=== PATIENT | female | born 1950 | race Hispanic/Latino ===

== ENCOUNTER → 2017-11-24 | Outpatient (CLI) | payer OTHER, MEDICARE ==
[~2017-11-24] MED LIST: ACET1TAB25 PO; ALBU8.5H8 IH; AMLO5TAB7 PO; AUD IH; BACL10TA PO; BACL20TA PO; BUDE0.255 IH; ENAL10TA PO; ESOM40CA PO; FAMO40TA7 PO; FLUO20CA30 PO; FURO20TA4 PO; GABA-318 PO; LOPE2CAP PO; MECL-111 PO; MONT10TA24 PO; OMEP20TA25 PO; PROM25TA7 PO; ROSU10TA PO; SUCR1TAB2 PO; TRAM-355 PO
[2017-11-24 09:32] LABS: ALANINE AMINOTRANSFERASE 20 U/L (12-78); ASPARTATE AMINOTRANSFERASE 18 U/L (10-37)
== END | disposition home or self-care (01) ==
LOC: RAH 08:21
PROVIDERS: ATTEND Podiatrist
DX: B35.1 Tinea unguium (principal)
CPT/HCPCS: 36415; 84450; 84460

== ENCOUNTER 2019-10-30 13:28 | Inpatient (IN) | payer MEDICARE ==
[~2019-10-30] VITALS: Ht 175.3 cm; Wt 77.9 kg
[~2019-10-30 13:28] MED LIST changes: -AMLO5TAB7 PO; +AMLO5TAB9 PO; -ENAL10TA PO; +ENAL10TA18 PO; -GABA-318 PO; +GABA600T10 PO; -MECL-111 PO; +MECL-160 PO; -MONT10TA24 PO; +MONT10TA26 PO; -ROSU10TA PO; +ROSU10TA22 PO
[2019-10-30] MEDS ORDERED: ZOSYN 3.375GM+NS 50ML 50 ML IV ONE (13:48)
[2019-10-30] MEDS ORDERED: ACETAMINOPHEN 650 MG SUPPOSITORY RC ONE (13:49)
[2019-10-30 13:58] LABS: ABG BASE EXCESS -8.7 mmol/L (-2.0-3.0); ABG HCO3 16.2 mmol/L (21.0-28.0); ABG OXYGEN SATURATION 99.3 % (95.0-99.0); ABG PCO2 32 mmHg (32-45)
[2019-10-30 14:16] LABS: APPEARANCE,URINE Clear (CLEAR); BASOPHILS % (AUTO) 0.3 % (0.0-5.0); BILIRUBIN,URINE Negative (NEGATIVE); COLOR,URINE Dark Yellow (YELLOW); EOSINOPHILS % (AUTO) 0.1 % (0.0-8.0); GLUCOSE, URINE (UA) Negative (NEGATIVE); HEMATOCRIT 32.8 % (36-48); KETONES,URINE Negative (NEGATIVE); LEUKOCYTE ESTERASE ,URINE Negative (NEGATIVE); LYMPHOCYTES % (AUTO) 17.4 % (21.0-51.0); MEAN CORPUSCULAR HEMOGLOBIN 29.5 pg (27.0-33.0); MEAN CORPUSCULAR HGB CONC 33.2 g/dL (32.0-36.0); MEAN CORPUSCULAR VOLUME 88.6 fL (79-99); MONOCYTES % (AUTO) 6.6 % (3.0-13.0); NEUTROPHILS % (AUTO) 74.2 % (40.0-77.0); NITRATE,URINE Negative (NEGATIVE); OCCULT BLOOD,URINE Large (NEGATIVE); PLATELET COUNT (AUTO) 183 K/uL (130-400); PROTEIN,URINE POS 2+ mg/dL (NEGATIVE); WHITE BLOOD COUNT (AUTO) 14.5 K/uL (4.8-10.8)
[2019-10-30 14:29] LABS: AMORPHOUS SEDIMENT,UR Few /LPF (None Seen); BACTERIA,URINE Rare /HPF (None Seen); MUCUS,URINE Many LPF (None Seen); SQUAMOUS EPITHELIAL CELL,UR Few /HPF (0-2); WBC,URINE 0-1 /HPF (0-1)
[2019-10-30 14:31] LABS: POTASSIUM 3.8 mmol/L (3.5-5.1)
[2019-10-30 14:46] LABS: INR 1.24 (0.85-1.15); PARTIAL THROMBOPLASTIN TIME 22.2 SEC (26.3-35.5); PROTHROMBIN TIME 13.3 SEC (9.6-11.6)
[2019-10-30 14:57] LABS: ALBUMIN 2.7 g/dL (3.5-5.0); BILIRUBIN,TOTAL 1.1 mg/dL (0.2-1.0); TOTAL PROTEIN, SERUM 6.2 g/dL (6.0-8.3)
--- NOTE | 2019-10-30 15:01 | NUR ---
pt intubated via EMS with LMA. Dr. Chase reintubated with 7.5 ET tube. Addendum: 10/30/19 at 1503 by DAMI CASEY RT Amended: Links added.
[2019-10-30 15:06] LABS: TROPONIN I 0.97 ng/mL (0.00-0.06)
[2019-10-30] MEDS ORDERED: PROPOFOL 1000 MG/100 ML 100 ML IV ONE ×2 (15:36→20:56)
[2019-10-30] MEDS ORDERED: VANCOMYCIN 1GM+NS 250ML 250 ML IV ONE (15:52)
[2019-10-30] MEDS ORDERED: NOREPINEPHRINE 4MG/NS 250ML 250 ML IV ONE (16:27)
[2019-10-30] MEDS ORDERED: MIDAZOLAM HCL 5 MG/ML 2ML VIAL IV ONE (16:57)
[2019-10-30] MEDS ORDERED: VANCOMYCIN PROTOCOL PER PHARMACY IV SCH (17:30)
[2019-10-30] MEDS: VANCOMYCIN 1GM+NS 250ML 250 ML IV SCH (18:00)
[2019-10-30] MEDS ORDERED: SODIUM BICARB 50MEQ 50ML VIAL ONE (18:17)
[2019-10-30] MEDS ORDERED: LACTATED RINGERS 1000ML 1,000 ML IV ONE (18:18)
[2019-10-30] MEDS ORDERED: NOREPINEPHRINE 4MG/NS 250ML IV SCH (18:45)
[2019-10-30] MEDS ORDERED: FENTANYL 2500MCG+NS 250ML 250 ML IV SCH (18:45)
[2019-10-30] MEDS ORDERED: FENTANYL 2500MCG+NS 250ML 250 ML IV ONE (21:16)
[2019-10-30 22:50] VITALS: BP 159/86
[2019-10-30 23:00] VITALS: BP 168/86
--- NOTE | 2019-10-30 23:00 | NUR ---
ADMISSION PT RECEIVED TO ROOM DAY PT 16, INTUBATED AND SEDATED. ETT 7.5, 23 CM AT THE LIP WITH SETTINGS OF AC/540%/420/PEEP OF 5. LEFT ARM IV X2 WITH IV FLUIDS/SEDATION/LEVOPHED INFUSING WITHOUT DIFFICULTY. RHYTHM: RBBB. 18FR OGT IN PLACE AND CLAMPED. LARGE BM NOTED, BATH GIVEN. 18FR ARCHER TO BSD. ASSESSMENT COMPLETED, SEE FLOW SHEET. ADMISSION DATA BASE AND PT HISTORY OBTAINED FROM PREVIOUS RECORDS. MED RECONCILIATION OBTAINED FROM MEDS WITH PT. SEE VITAL SIGNS,
[2019-10-30 23:15] VITALS: BP 145/81
[2019-10-30 23:30] VITALS: BP 162/85
[2019-10-30 23:45] VITALS: BP 164/90
[2019-10-30] MEDS: LACTATED RINGERS 1000ML 1,000 ML IV SCH (23:48)
[2019-10-30] MEDS: SODIUM CHLORIDE 0.9% 1000ML 1,000 ML IV SCH (23:49)
[2019-10-31] VITALS (25 sets, daily range): BP systolic 82–172; BP diastolic 46–88
[2019-10-31] MEDS: SODIUM CHLORIDE 0.9% 1000ML 1,000 ML IV SCH (00:47)
[2019-10-31] MEDS: LACTATED RINGERS 1000ML 1,000 ML IV SCH ×3 (00:57→19:49)
[2019-10-31 03:33] LABS: HEMATOCRIT 34.4 % (36-48); MEAN CORPUSCULAR HEMOGLOBIN 29.1 pg (27.0-33.0); MEAN CORPUSCULAR HGB CONC 34.3 g/dL (32.0-36.0); MEAN CORPUSCULAR VOLUME 84.7 fL (79-99); RED BLOOD CELL COUNT(AUTO) 4.06 MIL/uL (4.00-5.50); RED CELL DISTRIBUTION WIDTH 13.1 % (11.0-15.5); WHITE BLOOD COUNT (AUTO) 9.3 K/uL (4.8-10.8)
[2019-10-31 03:52] LABS: ALBUMIN 2.5 g/dL (3.5-5.0); BILIRUBIN,TOTAL 1.5 mg/dL (0.2-1.0); CREATININE 1.1 mg/dL (0.5-1.5); MAGNESIUM 1.5 mg/dL (1.80-2.40); PHOSPHORUS 3.1 mg/dL (2.5-4.9); POTASSIUM 3.2 mmol/L (3.5-5.1); TOTAL PROTEIN, SERUM 6.3 g/dL (6.0-8.3)
[2019-10-31] MEDS ORDERED: FLUO40CA7 PO (04:07)
[2019-10-31] MEDS ORDERED: ENALAPRIL PO (04:07)
[2019-10-31] MEDS ORDERED: OMEP20CA12 PO (04:07)
[2019-10-31] MEDS ORDERED: AMLODIPINE PO (04:07)
[2019-10-31] MEDS ORDERED: IBUP-2070 PO (04:07)
[2019-10-31] MEDS ORDERED: ATOR10TA69 PO (04:07)
[2019-10-31 04:30] LABS: ABG BASE EXCESS -0.3 mmol/L (-2.0-3.0); ABG HCO3 22.7 mmol/L (21.0-28.0); ABG OXYGEN SATURATION 98.5 % (95.0-99.0); ABG PCO2 33 mmHg (32-45)
[2019-10-31] MEDS ORDERED: ONDANSETRON HCL 4 MG/2 ML VIAL IVP PRN (04:30)
--- NOTE | 2019-10-31 04:40 | NUR ---
LAUREN GIRLS TENNIS COACH CALL PLACED TO ANSWERING SERVICE AT 0440 RETURN CALL PENDING.
[2019-10-31] MEDS: ZOSYN 3.375GM+NS 50ML 50 ML IV SCH ×2 (05:29→16:38)
--- NOTE | 2019-10-31 06:00 | NUR ---
LAUREN MARTIN CALL PLACED TO ANSWERING SERVICE AT 0600 RETURN CALL PENDING.
--- NOTE | 2019-10-31 06:15 | NUR ---
LAUREN MARTIN STOVE MECHANIC MADE AWARE TROPONIN LEVEL 3.25, LACTIC ACID LEVEL 2.2, KCL LEVEL 3.2, MAGNESIUM LEVEL 1.5. SEE ORDERS
[2019-10-31] MEDS ORDERED: LIDOCAINE HCL-MPF 1% 2ML VIAL IV PRN (06:30)
[2019-10-31] MEDS ORDERED: POTASSIUM CHLORIDE 20 MEQ ERTAB PO PRN (06:30)
[2019-10-31] MEDS: FAMOTIDINE/PF 20 MG/2 ML VIAL IV SCH (08:32)
[2019-10-31] MEDS: POTASSIUM CHLORIDE 20MEQ/100ML 100 ML IV PRN ×2 (08:35→10:38)
[2019-10-31] MEDS: MAGNESIUM 2GM PREMIX 50ML 50 ML IV PRN (08:35)
[2019-10-31] MEDS ORDERED: ENOXAPARIN SODIUM 40 MG/0.4 ML SYRINGE SQ SCH (09:00)
[2019-10-31 12:45] LABS: POTASSIUM 3.2 mmol/L (3.5-5.1)
--- NOTE | 2019-10-31 16:20 | NUR ---
ABBIE informed by Matthew/ANN she has contacted pt's caregiver for information on family or next of kin and was informed that pt. was never , has no children and a brother for whom she has no contact information. ABBIE contacted Noni Guadarrama [phone] who also informed this worker that pt. had no spouse or children; a brother whom pt. was estranged from. ABBIE contacted [facility] services and was informed pt. did not include a relative/next of kin. ABBIE contacted
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
--- NOTE | 2019-10-31 17:00 | NUR ---
Telephone call from Adonay/Director of [facility] who stated that pt. did not have Advance Directives in place. Adonay provided a contact tel#for Brother/Eliot Avitia [phone] and to VIVIANA [phone], stating if unable to contact Brother, VIVIANA may have additional information. ABBIE will f/u.
[2019-10-31] MEDS: VANCOMYCIN 1GM+NS 250ML 250 ML IV SCH (17:05)
[2019-10-31] MEDS: PANTOPRAZOLE 40 MG/VIAL IVP SCH (19:49)
[2019-10-31] MEDS: MIDAZOLAM 100MG-0.9% NS 100ML 100 ML IV SCH (19:50)
[2019-10-31] MEDS ORDERED: ENOXAPARIN SODIUM 100 MG/1 ML SQ SCH (21:00)
[2019-11-01] VITALS (24 sets, daily range): BP systolic 96–121; BP diastolic 14–67
[2019-11-01] MEDS: LACTATED RINGERS 1000ML 1,000 ML IV SCH ×4 (02:45→14:45)
[2019-11-01 04:20] LABS: BASOPHILS % (AUTO) 0.3 % (0.0-5.0); EOSINOPHILS % (AUTO) 0.1 % (0.0-8.0); HEMATOCRIT 34.3 % (36-48); LYMPHOCYTES % (AUTO) 16.5 % (21.0-51.0); MEAN CORPUSCULAR HEMOGLOBIN 28.7 pg (27.0-33.0); MEAN CORPUSCULAR HGB CONC 32.9 g/dL (32.0-36.0); MEAN CORPUSCULAR VOLUME 87.1 fL (79-99); MONOCYTES % (AUTO) 5.5 % (3.0-13.0); NEUTROPHILS % (AUTO) 77.1 % (40.0-77.0); PLATELET COUNT (AUTO) 41 K/uL (130-400); RED BLOOD CELL COUNT(AUTO) 3.94 MIL/uL (4.00-5.50); RED CELL DISTRIBUTION WIDTH 13.4 % (11.0-15.5); WHITE BLOOD COUNT (AUTO) 15.4 K/uL (4.8-10.8)
[2019-11-01 04:32] LABS: B-TYPE NATRIURETIC PEPTIDE 47 pg/mL (0-100)
[2019-11-01] MEDS: ZOSYN 3.375GM+NS 50ML 50 ML IV SCH ×2 (04:35→16:32)
[2019-11-01 04:40] LABS: ALBUMIN 2.5 g/dL (3.5-5.0); BILIRUBIN,TOTAL 1.4 mg/dL (0.2-1.0); CREATININE 1.1 mg/dL (0.5-1.5); MAGNESIUM 1.9 mg/dL (1.80-2.40); THYROID STIMULATING HORMONE 0.87 uIU/mL (0.36-3.74); TOTAL PROTEIN, SERUM 5.6 g/dL (6.0-8.3)
[2019-11-01] MEDS: POTASSIUM CHLORIDE 20MEQ/100ML 100 ML IV PRN ×2 (04:46→06:16)
[2019-11-01 04:48] LABS: INR 1.14 (0.85-1.15); PARTIAL THROMBOPLASTIN TIME 25.6 SEC (26.3-35.5); PROTHROMBIN TIME 12.2 SEC (9.6-11.6)
[2019-11-01 05:07] LABS: HEMOGLOBIN A1C 6.5 % (4.0-6.0)
[2019-11-01 07:37] LABS: ABG BASE EXCESS -2.2 mmol/L (-2.0-3.0); ABG HCO3 23.1 mmol/L (21.0-28.0); ABG OXYGEN SATURATION 92.1 % (95.0-99.0); ABG PCO2 41 mmHg (32-45)
--- NOTE | 2019-11-01 08:30 | NUR ---
ABBIE attempted several calls to [phone]/last known phone number for pt's brother per [facility], however, no answer. ABBIE telephoned VAIL at [phone] in attempts to speak w/pt's protective services case worker; message left with gridcap machine operator for CM to contact this worker.
[2019-11-01] MEDS: LEVOFLOXACIN 750 MG/D5W 150 ML 150 ML IV SCH (09:06)
[2019-11-01] MEDS: FAMOTIDINE/PF 20 MG/2 ML VIAL IV SCH (09:06)
[2019-11-01] MEDS: PANTOPRAZOLE 40 MG/VIAL IVP SCH ×2 (09:06→20:42)
--- NOTE | 2019-11-01 09:15 | NUR ---
SW received t/c from Nova Guadarrama/[employer]/VIVIANA [phone], reports does not have next of kin listed on record.
--- NOTE | 2019-11-01 11:10 | NUR ---
SW attempted call again, to last known contact/pt's brother @ [phone]; no answer.
--- NOTE | 2019-11-01 14:15 | NUR ---
SW telephoned Brother again, was able to speak with him who reports that it has been almost five years since he spoke or has known of her. Brother provided w/hospital contact information as requested so that he may contact primary nurse. SW attempted call to primary nurse to inform of above, no answer. ANN Esqueda, made aware.
--- NOTE | 2019-11-01 15:11 | NUR ---
Brother of patient requesting information about patient, gave number & name & added to facesheet, family member began asking for physical address of patient, stating he doesn't know where she lives; informed brother that information was confidential and to ask primary caregiver or patient once able to verbalize consent. Family member became angry and stated "well don't call me about the patient". Case management notified & recommended to make a note about occurrence.
[2019-11-01] MEDS: MIDAZOLAM 100MG-0.9% NS 100ML 100 ML IV SCH (16:31)
[2019-11-01] MEDS: VANCOMYCIN 1GM+NS 250ML 250 ML IV SCH (17:17)
[2019-11-01] MEDS ORDERED: SODIUM CHLORIDE 0.9% 1000ML 1,000 ML IV SCH (21:00)
[2019-11-02] VITALS (24 sets, daily range): BP systolic 95–135; BP diastolic 51–69
[2019-11-02] MEDS: ZOSYN 3.375GM+NS 50ML 50 ML IV SCH ×2 (04:50→17:00)
[2019-11-02 07:07] LABS: BASOPHILS % (AUTO) 0.3 % (0.0-5.0); EOSINOPHILS % (AUTO) 0.6 % (0.0-8.0); HEMATOCRIT 31.3 % (36-48); LYMPHOCYTES % (AUTO) 12.1 % (21.0-51.0); MEAN CORPUSCULAR HEMOGLOBIN 29.7 pg (27.0-33.0); MEAN CORPUSCULAR HGB CONC 33.2 g/dL (32.0-36.0); MEAN CORPUSCULAR VOLUME 89.4 fL (79-99); MONOCYTES % (AUTO) 5.6 % (3.0-13.0); NEUTROPHILS % (AUTO) 80.8 % (40.0-77.0); PLATELET COUNT (AUTO) 56 K/uL (130-400); RED CELL DISTRIBUTION WIDTH 13.8 % (11.0-15.5); WHITE BLOOD COUNT (AUTO) 13.3 K/uL (4.8-10.8)
[2019-11-02 07:26] LABS: BILIRUBIN,TOTAL 1.4 mg/dL (0.2-1.0); CREATININE 0.9 mg/dL (0.5-1.5); POTASSIUM 3.5 mmol/L (3.5-5.1); TOTAL PROTEIN, SERUM 5.2 g/dL (6.0-8.3)
[2019-11-02 07:29] LABS: PROTHROMBIN TIME 10.8 SEC (9.6-11.6)
[2019-11-02] MEDS: PANTOPRAZOLE 40 MG/VIAL IVP SCH ×2 (08:51→21:55)
[2019-11-02] MEDS: FAMOTIDINE/PF 20 MG/2 ML VIAL IV SCH (08:51)
[2019-11-02] MEDS: LEVOFLOXACIN 750 MG/D5W 150 ML 150 ML IV SCH (08:51)
[2019-11-02] MEDS: LACTATED RINGERS 1000ML 1,000 ML IV SCH ×2 (10:45→18:45)
--- NOTE | 2019-11-02 10:55 | NUR ---
Telephone call from pt's brother asking for update on pt's condition; reinforced to brother that he may contact pt's nurse; brother voiced an understanding and stated that he would follow up with nurse.
--- NOTE | 2019-11-02 12:00 | NUR ---
FAMILY CALL JORJE ANDERSON, BROTHER AND NEXT OF KIN , WAS CONTACTED. HE STATES TO ASSUMES ALL RESPONSIBILITY FOR PT WHILE INTUBATED AND UNABLE TO MAKE DECISIONS. GAVE CONSENT FOR PICC LINE PLACEMENT.
--- NOTE | 2019-11-02 13:50 | NUR ---
6 FR 3 LUMEN PICC INSERTED TO RIGHT BASILIC VEIN, USING ASEPTIC TECHNIQUE WITH ONE SUCCESSFUL ATTEMPT. CATHETER TRIMMED TO 38 CM. (+) VPS BULLSEYE INDICATES PICC TIP IN LOWER 1/3 OF SVC OR AT CAVOATRIAL JUNCTION WITH 37 CM INTERNAL CATHETER AND 1 CM EXPOSED. STERILE BIOPATCH AND DRESSING APPLIED. PICC OK TO USE PER PROTOCOL. ALL 3 LUMENS HAVE GOOD BLOOD RETURN AND FLUSHED EASILY AND CLAMPED. ARM CIRCUMFERENCE 31CM.
[2019-11-02] MEDS ORDERED: PHARMACY COMMUNICATION MISC SCH (15:00)
[2019-11-02] MEDS ORDERED: FUROSEMIDE 10 MG/ML 4ML VIAL IV SCH (15:00)
[2019-11-02] MEDS ORDERED: ALBUMIN (HUMAN) 25% 100 ML IV PRN (15:00)
--- NOTE | 2019-11-02 15:29 | NUR ---
RD NOTIFICATION - TUBE FEEDING Recommend initiate Vital AF 1.2 @15mls x 10 hrs. Goal rate 50mls/hr Recommend H2O Flushes 140 Q 4hrs Recommendations faxed to Day Pt ([id number]), RN notified. NUTRITION NOTE: Pt admitted with Sepsis, Bacterlyosis, Rhabdomyolysis. Intubation. OGT placement. Hx CP, functional quadriplegia. RD to continue to monitor. Addendum: 11/02/19 at [address] Amended: Links added.
[2019-11-02] MEDS ORDERED: ALBUMIN (HUMAN) 25% 100 ML IV SCH (16:00)
--- NOTE | 2019-11-02 16:15 | NUR ---
[facility] consult Patient assessed as ordered. No open ulcer identified. 2 areas of DTI noted on sacral area. Zinc and allevyn already being applied to area. No further [facility] recommendations needed at this time. Report given to patient's nurse, Karmen IBANEZ. Addendum: 11/03/19 at 0813 by JUAN FELTON RN/ANKITA Amended: Links added.
[2019-11-02] MEDS: VANCOMYCIN 1GM+NS 250ML 250 ML IV SCH (18:00)
[2019-11-03] VITALS (24 sets, daily range): BP systolic 124–165; BP diastolic 63–85
[2019-11-03] MEDS: LACTATED RINGERS 1000ML 1,000 ML IV SCH ×3 (03:02→22:40)
[2019-11-03 04:03] LABS: ABG BASE EXCESS 1.7 mmol/L (-2.0-3.0); ABG HCO3 26.4 mmol/L (21.0-28.0); ABG OXYGEN SATURATION 95.6 % (95.0-99.0); ABG PCO2 42 mmHg (32-45)
[2019-11-03] MEDS: ZOSYN 3.375GM+NS 50ML 50 ML IV SCH ×2 (05:09→17:59)
[2019-11-03 05:49] LABS: HEMATOCRIT 29.3 % (36-48); MEAN CORPUSCULAR HEMOGLOBIN 29.7 pg (27.0-33.0); MEAN CORPUSCULAR HGB CONC 33.4 g/dL (32.0-36.0); MEAN CORPUSCULAR VOLUME 88.8 fL (79-99); RED BLOOD CELL COUNT(AUTO) 3.3 MIL/uL (4.00-5.50); RED CELL DISTRIBUTION WIDTH 13.5 % (11.0-15.5); WHITE BLOOD COUNT (AUTO) 11.1 K/uL (4.8-10.8)
[2019-11-03 06:12] LABS: MAGNESIUM 1.6 mg/dL (1.80-2.40); PHOSPHORUS 3.2 mg/dL (2.5-4.9)
[2019-11-03 08:03] LABS: CREATININE 0.7 mg/dL (0.5-1.5); POTASSIUM 3.3 mmol/L (3.5-5.1)
[2019-11-03] MEDS: FAMOTIDINE/PF 20 MG/2 ML VIAL IV SCH (08:40)
[2019-11-03] MEDS: LEVOFLOXACIN 750 MG/D5W 150 ML 150 ML IV SCH (08:40)
[2019-11-03] MEDS: PANTOPRAZOLE 40 MG/VIAL IVP SCH ×2 (08:40→21:45)
[2019-11-03] MEDS: POTASSIUM CHLORIDE 20MEQ/100ML 100 ML IV PRN ×2 (08:41→12:28)
--- NOTE | 2019-11-03 09:50 | NUR ---
RD UPDATE Repeat Tube feeding eval. consult received. Recommendations Re-faxed. Read order over phone with RN. RD to continue to monitor.
[2019-11-03] MEDS: VANCOMYCIN 1GM+NS 250ML 250 ML IV SCH (17:59)
[2019-11-04] VITALS (22 sets, daily range): BP systolic 107–174; BP diastolic 56–90
[2019-11-04] MEDS: ZOSYN 3.375GM+NS 50ML 50 ML IV SCH ×2 (05:29→16:00)
[2019-11-04] MEDS: LACTATED RINGERS 1000ML 1,000 ML IV SCH ×3 (05:29→18:45)
[2019-11-04] MEDS: FAMOTIDINE/PF 20 MG/2 ML VIAL IV SCH (08:05)
[2019-11-04] MEDS: LEVOFLOXACIN 750 MG/D5W 150 ML 150 ML IV SCH (08:05)
[2019-11-04] MEDS: PANTOPRAZOLE 40 MG/VIAL IVP SCH ×2 (08:05→19:37)
[2019-11-04 08:26] LABS: HEMATOCRIT 26.7 % (36-48); MEAN CORPUSCULAR HEMOGLOBIN 29.1 pg (27.0-33.0); MEAN CORPUSCULAR VOLUME 88.4 fL (79-99); RED BLOOD CELL COUNT(AUTO) 3.02 MIL/uL (4.00-5.50); RED CELL DISTRIBUTION WIDTH 13.2 % (11.0-15.5); WHITE BLOOD COUNT (AUTO) 8.5 K/uL (4.8-10.8)
[2019-11-04 08:46] LABS: ALBUMIN 1.9 g/dL (3.5-5.0); BILIRUBIN,TOTAL 2.6 mg/dL (0.2-1.0); CREATININE 0.7 mg/dL (0.5-1.5); POTASSIUM 3.2 mmol/L (3.5-5.1); TOTAL PROTEIN, SERUM 5.2 g/dL (6.0-8.3)
[2019-11-04] MEDS: POTASSIUM CHLORIDE 20MEQ/100ML 100 ML IV PRN ×3 (09:44→15:36)
[2019-11-04] MEDS ORDERED: COMPOUND IV REFRIGERATED 1 EACH IVSOLN MISC PRN (18:30)
[2019-11-04] MEDS: VANCOMYCIN 1.25 GM in SODIUM CHLORIDE 0.9% 250 ML IV SCH (19:38)
[2019-11-05] VITALS (24 sets, daily range): BP systolic 98–169; BP diastolic 47–106
[2019-11-05] MEDS: LACTATED RINGERS 1000ML 1,000 ML IV SCH ×3 (02:45→16:24)
[2019-11-05] MEDS: ZOSYN 3.375GM+NS 50ML 50 ML IV SCH ×2 (05:44→16:24)
[2019-11-05 05:54] LABS: BASOPHILS % (AUTO) 0.5 % (0.0-5.0); HEMATOCRIT 27.5 % (36-48); LYMPHOCYTES % (AUTO) 13.4 % (21.0-51.0); MEAN CORPUSCULAR HEMOGLOBIN 29.2 pg (27.0-33.0); MEAN CORPUSCULAR HGB CONC 33.8 g/dL (32.0-36.0); MEAN CORPUSCULAR VOLUME 86.5 fL (79-99); MONOCYTES % (AUTO) 10.4 % (3.0-13.0); PLATELET COUNT (AUTO) 201 K/uL (130-400); RED BLOOD CELL COUNT(AUTO) 3.18 MIL/uL (4.00-5.50); RED CELL DISTRIBUTION WIDTH 12.8 % (11.0-15.5); WHITE BLOOD COUNT (AUTO) 9.2 K/uL (4.8-10.8)
[2019-11-05 06:06] LABS: ALBUMIN 2.1 g/dL (3.5-5.0); BILIRUBIN,TOTAL 3.2 mg/dL (0.2-1.0); CREATININE 0.6 mg/dL (0.5-1.5); MAGNESIUM 1.6 mg/dL (1.80-2.40); PHOSPHORUS 2.7 mg/dL (2.5-4.9); POTASSIUM 3.4 mmol/L (3.5-5.1); TOTAL PROTEIN, SERUM 5.5 g/dL (6.0-8.3)
[2019-11-05] MEDS ORDERED: PROPOFOL 1000 MG/100 ML 100 ML IV ONE (07:53)
[2019-11-05] MEDS ORDERED: PROPOFOL 1000 MG/100 ML 100 ML IV SCH (08:00)
[2019-11-05] MEDS: VANCOMYCIN 1.25 GM in SODIUM CHLORIDE 0.9% 250 ML IV SCH ×2 (08:30→20:00)
[2019-11-05] MEDS: LEVOFLOXACIN 750 MG/D5W 150 ML 150 ML IV SCH (08:30)
[2019-11-05] MEDS: FAMOTIDINE/PF 20 MG/2 ML VIAL IV SCH (08:30)
[2019-11-05] MEDS: PANTOPRAZOLE 40 MG/VIAL IVP SCH ×2 (08:30→21:37)
[2019-11-05] MEDS: POTASSIUM CHLORIDE 20MEQ/100ML 100 ML IV PRN (11:21)
[2019-11-05 14:03] LABS: ABG BASE EXCESS -0.4 mmol/L (-2.0-3.0); ABG HCO3 21.7 mmol/L (21.0-28.0); ABG OXYGEN SATURATION 97.8 % (95.0-99.0); ABG PCO2 29 mmHg (32-45)
--- NOTE | 2019-11-05 14:22 | NUR ---
1410 extubated after normal abg, tolerated well; cough/congestion/raspy cough/voice-onto ventimask 40% o2, 12 liters, 1415 suctioned scant amount back of throat, sat 99% on ventimask 40%, 10 liters/o2, awake/alert.
[2019-11-05] MEDS: MAGNESIUM 2GM PREMIX 50ML 50 ML IV PRN (21:20)
[2019-11-06] VITALS (18 sets, daily range): BP systolic 136–161; BP diastolic 69–94
[2019-11-06] MEDS: ZOSYN 3.375GM+NS 50ML 50 ML IV SCH (04:28)
[2019-11-06 05:03] LABS: BASOPHILS % (AUTO) 0.4 % (0.0-5.0); EOSINOPHILS % (AUTO) 0.8 % (0.0-8.0); HEMATOCRIT 31.1 % (36-48); LYMPHOCYTES % (AUTO) 11.2 % (21.0-51.0); MEAN CORPUSCULAR HEMOGLOBIN 28.8 pg (27.0-33.0); MEAN CORPUSCULAR HGB CONC 33.4 g/dL (32.0-36.0); MEAN CORPUSCULAR VOLUME 86.1 fL (79-99); MONOCYTES % (AUTO) 13.6 % (3.0-13.0); PLATELET COUNT (AUTO) 298 K/uL (130-400); RED BLOOD CELL COUNT(AUTO) 3.61 MIL/uL (4.00-5.50); RED CELL DISTRIBUTION WIDTH 12.6 % (11.0-15.5); WHITE BLOOD COUNT (AUTO) 10.1 K/uL (4.8-10.8)
[2019-11-06 05:19] LABS: ALBUMIN 2.5 g/dL (3.5-5.0); BILIRUBIN,TOTAL 4.5 mg/dL (0.2-1.0); CREATININE 0.6 mg/dL (0.5-1.5); MAGNESIUM 1.9 mg/dL (1.80-2.40); POTASSIUM 3.1 mmol/L (3.5-5.1); TOTAL PROTEIN, SERUM 6.4 g/dL (6.0-8.3)
[2019-11-06] MEDS: LACTATED RINGERS 1000ML 1,000 ML IV SCH ×2 (06:32→09:13)
--- NOTE | 2019-11-06 06:33 | NUR ---
PATIENT UPDATE Pt hardly slept overnight, mumbling, slurry random speech. Hacking cough most of the time, poor coughing effort. Suctioned almost every 2 hrs, very small amt of watery phlegm, patient sounding like she's aspirating the whole time. Right arm which she moves a lot more than the left with mitten on, cms check adequate. PIV's x 2, infiltrated at the beginning of the shift, replaced with 2 new piv's on the right side. Left arm very swollen, elevated over 1 pillow.Mgso4 noted to be on the low side the last 3 days , 2 gms mgso4 ivpb hung for mg of 1.5. PIV fluid LR ordered for 125 cc/hr, ran at 75 cc, pt's breath sounds very diminished early this am. Humidified O2 at 3l per nasal cannula, O2 sat adequate. Meticulous oral care done, vital signs stable, urine output adequate. Unable to attempt ngt insertion as planned, pt very anxious and restless, intermittent hacking cough in between. May need to be reassesed for the need for halfway gavage feeding considering her bedbound status.
[2019-11-06] MEDS: FAMOTIDINE/PF 20 MG/2 ML VIAL IV SCH (07:35)
[2019-11-06] MEDS: LEVOFLOXACIN 750 MG/D5W 150 ML 150 ML IV SCH (07:36)
[2019-11-06] MEDS: PANTOPRAZOLE 40 MG/VIAL IVP SCH ×2 (07:36→21:12)
[2019-11-06] MEDS: POTASSIUM CHLORIDE 20MEQ/100ML 100 ML IV PRN ×2 (07:36→09:49)
--- NOTE | 2019-11-06 09:10 | NUR ---
0850 Attempted x2 to insert NG tube, unable to follow commands, speaking unknown language (Japanese/Ukrainian), unable to verify if tube is going into lungs, discontinued attempt. Unable to drink water.
[2019-11-06] MEDS: VANCOMYCIN 1.25 GM in SODIUM CHLORIDE 0.9% 250 ML IV SCH ×2 (09:13→20:33)
--- NOTE | 2019-11-06 14:32 | NUR ---
[address] Garcia who confirmed for patient to be placed on surgical schedule for peg placement on 11/08/2019 @ 0700, & to obtain consent. supervisor personnel clerks & case management notified. Brother Eliot @ listed number gave consent for peg tube placement, verified x2 nurse phone consent, signed & placed in chart. 1400-Dr Quintanilla confirmed patient can be placed in stepdown ICU, d/t continued high risk for aspiration, updated on plan of care of peg tube placement. oral care completed on patient, several passes of wiping dried blood off lips & applying surgical lubricant to dry areas. Teeth brushed, tolerated well. 1402-supervisor personnel clerks notified of downgrading patient confirmed by md. Order entered into chart.
--- NOTE | 2019-11-06 15:12 | NUR ---
Report given to Sander for Rm 427.
--- NOTE | 2019-11-06 15:40 | NUR ---
Transferred up to 4th floor with tech & nurse on 2liters/o2, tele monitor on/checked, ambu bag @ side.
[2019-11-06] MEDS ORDERED: ZOSYN 3.375GM+NS 50ML 50 ML IV SCH (21:00)
[2019-11-07] VITALS: BP 122/55
[2019-11-07 00:28] VITALS: BP 151/82
[2019-11-07 04:00] VITALS: BP 135/95
[2019-11-07 05:22] LABS: BASOPHILS % (AUTO) 0.4 % (0.0-5.0); EOSINOPHILS % (AUTO) 1.6 % (0.0-8.0); HEMATOCRIT 30.8 % (36-48); LYMPHOCYTES % (AUTO) 15.2 % (21.0-51.0); MEAN CORPUSCULAR HEMOGLOBIN 28.9 pg (27.0-33.0); MEAN CORPUSCULAR HGB CONC 33.8 g/dL (32.0-36.0); MEAN CORPUSCULAR VOLUME 85.6 fL (79-99); MONOCYTES % (AUTO) 13.9 % (3.0-13.0); NEUTROPHILS % (AUTO) 68.4 % (40.0-77.0); PLATELET COUNT (AUTO) 385 K/uL (130-400); RED CELL DISTRIBUTION WIDTH 12.8 % (11.0-15.5); WHITE BLOOD COUNT (AUTO) 9.3 K/uL (4.8-10.8)
[2019-11-07] MEDS: LACTATED RINGERS 1000ML 1,000 ML IV SCH ×2 (05:23→13:25)
[2019-11-07 05:41] LABS: ALBUMIN 2.4 g/dL (3.5-5.0); BILIRUBIN,TOTAL 4.1 mg/dL (0.2-1.0); CREATININE 0.6 mg/dL (0.5-1.5); MAGNESIUM 1.7 mg/dL (1.80-2.40); PHOSPHORUS 3.4 mg/dL (2.5-4.9); POTASSIUM 3.8 mmol/L (3.5-5.1); TOTAL PROTEIN, SERUM 6.4 g/dL (6.0-8.3)
[2019-11-07] MEDS: VANCOMYCIN 1.25 GM in SODIUM CHLORIDE 0.9% 250 ML IV SCH ×2 (08:00→20:25)
--- NOTE | 2019-11-07 08:00 | NUR ---
CARE, ORAL AND FACE, CARE DONE,, MATTRESS ON .
[2019-11-07] MEDS: FAMOTIDINE/PF 20 MG/2 ML VIAL IV SCH (08:49)
[2019-11-07] MEDS: ENOXAPARIN SODIUM 40 MG/0.4 ML SYRINGE SQ SCH (08:52)
[2019-11-07] MEDS: PANTOPRAZOLE 40 MG/VIAL IVP SCH ×2 (09:00→21:14)
--- NOTE | 2019-11-07 09:20 | NUR ---
vanco trough done , and fax to [facility]. results of 9.5
--- NOTE | 2019-11-07 10:02 | NUR ---
CALL [facility]. FOR VANCO IVPB DOSE TO START, VANCO TROUGH SEND OUT TO [facility]. FOR DOSING, MANGEMENT .
[2019-11-07] MEDS: LEVOFLOXACIN 750 MG/D5W 150 ML 150 ML IV SCH (11:08)
--- NOTE | 2019-11-07 12:02 | NUR ---
CHART REVIEWED. DISPO TO HOME? HOPING THAT PATIENT WILL BE ABLE TO BACK TO HOME SETTING WITH MORE SUPPORT FOR HER PROVIDER VIA HH/PT TO [facility] TRANSFER ABILITY. EXPECTING 2+ DAY OF TX PRIOR TO DC. EXPECTED EMS TRANSPORT AT TIME OF DC
[2019-11-07 12:26] VITALS: BP 149/78
[2019-11-07] MEDS: ZOSYN 3.375GM+NS 50ML 50 ML IV SCH ×2 (12:43→21:14)
--- NOTE | 2019-11-07 12:45 | NUR ---
DID NOT GIVE THE 0800 DOSE OF VANCO 1.5 GMS IVBP . DID NOT GET BAG UNTIL THIS TIME,, SCHLD DOSE AT 2000 TO KEEP IN SCHLD . DOSE. VANCO TROUGH TO BE DONE . BEFORE 4TH DOSE. PER [facility] PROTOCOL.
--- NOTE | 2019-11-07 16:51 | NUR ---
CARE DONE . ORAL CARE .. TURNED . HOB UP . BROTHER CALLED , UPDATE CARE.
[2019-11-07] MEDS: MAGNESIUM 2GM PREMIX 50ML 50 ML IV PRN (17:03)
[2019-11-07 18:31] VITALS: BP 144/81
[2019-11-07 20:28] VITALS: BP 148/70
[2019-11-08] VITALS (21 sets, daily range): BP systolic 110–168; BP diastolic 64–92
[2019-11-08 05:29] LABS: HEMATOCRIT 31.9 % (36-48); MEAN CORPUSCULAR HEMOGLOBIN 29.2 pg (27.0-33.0); MEAN CORPUSCULAR HGB CONC 33.9 g/dL (32.0-36.0); MEAN CORPUSCULAR VOLUME 86.2 fL (79-99); RED BLOOD CELL COUNT(AUTO) 3.7 MIL/uL (4.00-5.50); RED CELL DISTRIBUTION WIDTH 12.9 % (11.0-15.5); WHITE BLOOD COUNT (AUTO) 8.6 K/uL (4.8-10.8)
[2019-11-08 05:52] LABS: INR 1.06 (0.85-1.15); PROTHROMBIN TIME 11.4 SEC (9.6-11.6)
[2019-11-08 06:20] LABS: ALBUMIN 2.7 g/dL (3.5-5.0); CREATININE 0.6 mg/dL (0.5-1.5); PHOSPHORUS 4.8 mg/dL (2.5-4.9); POTASSIUM 3.3 mmol/L (3.5-5.1); TOTAL PROTEIN, SERUM 6.7 g/dL (6.0-8.3)
[2019-11-08] MEDS: VANCOMYCIN 1.25 GM in SODIUM CHLORIDE 0.9% 250 ML IV SCH ×2 (08:00→19:40)
[2019-11-08] MEDS: ZOSYN 3.375GM+NS 50ML 50 ML IV SCH ×2 (09:00→21:02)
[2019-11-08] MEDS: FAMOTIDINE/PF 20 MG/2 ML VIAL IV SCH (09:00)
[2019-11-08] MEDS: LEVOFLOXACIN 750 MG/D5W 150 ML 150 ML IV SCH (09:00)
[2019-11-08] MEDS: PANTOPRAZOLE 40 MG/VIAL IVP SCH ×2 (09:00→21:02)
[2019-11-08] MEDS: ENOXAPARIN SODIUM 40 MG/0.4 ML SYRINGE SQ SCH (09:00)
[2019-11-08] MEDS ORDERED: SILVER NITRATE APPLICATOR 1 SWAB TP ONE (11:00)
[2019-11-08] MEDS ORDERED: PROPOFOL 10 MG/ML 20ML VIAL IV ONE (11:29)
--- NOTE | 2019-11-08 12:22 | NUR ---
CHART REVIEWED. WILL DISCUSS PLAN OF CARE WITH DR. PRAKASH. FOR DC TO HOME WITH HOME HEALTH?
[2019-11-08] MEDS: LACTATED RINGERS 1000ML 1,000 ML IV SCH ×2 (12:53→16:05)
--- NOTE | 2019-11-08 13:05 | NUR ---
RD FOLLOW UP RD Notification. Recommend initiate continuous tube feedings at 20mls/hr. Goal rate of 50 mls/hr. Recommend H2O Flushes of 175 Q6hrs. Recommendations faxed to Sherif RN received recommendations. Nutrition update: NGT unable to be inserted. Pending PEG placement. Pt with dysphagia, CP, Bedbound. Bolus feeding recommendations included if needed for discharge. ARF, s/p intubation 10/30, S/p Extubation 11/05/19. RD to continue to monitor. Please notify as additional nutrition concerns arise. Thank you.
[2019-11-09] VITALS: BP 162/92
[2019-11-09 04:00] VITALS: BP 157/83
[2019-11-09 05:48] LABS: BASOPHILS % (AUTO) 0.4 % (0.0-5.0); EOSINOPHILS % (AUTO) 0.4 % (0.0-8.0); HEMATOCRIT 35.5 % (36-48); LYMPHOCYTES % (AUTO) 13.1 % (21.0-51.0); MEAN CORPUSCULAR HEMOGLOBIN 29.1 pg (27.0-33.0); MEAN CORPUSCULAR HGB CONC 33.8 g/dL (32.0-36.0); MEAN CORPUSCULAR VOLUME 86.2 fL (79-99); MONOCYTES % (AUTO) 10.1 % (3.0-13.0); NEUTROPHILS % (AUTO) 75.5 % (40.0-77.0); PLATELET COUNT (AUTO) 512 K/uL (130-400); RED BLOOD CELL COUNT(AUTO) 4.12 MIL/uL (4.00-5.50); RED CELL DISTRIBUTION WIDTH 13.2 % (11.0-15.5); WHITE BLOOD COUNT (AUTO) 9.2 K/uL (4.8-10.8)
[2019-11-09 06:07] LABS: CREATININE 0.5 mg/dL (0.5-1.5)
[2019-11-09 06:17] LABS: POTASSIUM 2.9 mmol/L (3.5-5.1)
[2019-11-09] MEDS: POTASSIUM CHLORIDE 20MEQ/100ML 100 ML IV PRN ×2 (06:23→10:46)
[2019-11-09] MEDS: LACTATED RINGERS 1000ML 1,000 ML IV SCH ×2 (06:30→18:45)
[2019-11-09] MEDS: VANCOMYCIN 1.25 GM in SODIUM CHLORIDE 0.9% 250 ML IV SCH ×2 (08:00→19:54)
[2019-11-09 08:03] VITALS: BP 149/78
[2019-11-09] MEDS: FAMOTIDINE/PF 20 MG/2 ML VIAL IV SCH (09:00)
--- NOTE | 2019-11-09 10:00 | NUR ---
RESIDUAL CHECK NO RESIDUALS ASPIRATED, TUBE FEEDING INCREASED TO 25ML/HR.
[2019-11-09] MEDS: PANTOPRAZOLE 40 MG/VIAL IVP SCH ×2 (10:46→21:32)
[2019-11-09] MEDS: ZOSYN 3.375GM+NS 50ML 50 ML IV SCH ×2 (10:46→21:32)
[2019-11-09] MEDS: LEVOFLOXACIN 750 MG/D5W 150 ML 150 ML IV SCH (10:46)
[2019-11-09] MEDS: ENOXAPARIN SODIUM 40 MG/0.4 ML SYRINGE SQ SCH (10:47)
[2019-11-09 11:47] VITALS: BP 159/65
--- NOTE | 2019-11-09 12:31 | NUR ---
IBETH Venegas RN, PROVIDER; TEXT TO NEW PEG, LOOKED AFTER WELL AT HOME, WILL NEED HOME HEALTH FOR PEG TEACHING/OVERSIGHT, WILL NEED PROVIDER TO COME IN TO GET TEACHING CALL TO [facility] TO ASK WHAT LUIS ALBERTO MEZA HAD IN PAST, DOES NOT REMEMBER TEXT TO , AWAITING RESPONSE OR ROUNDING Addendum: 11/09/19 at 1237 by CARMINA STERN RN Amended: Links added.
[2019-11-09 15:43] VITALS: BP 167/78
--- NOTE | 2019-11-09 16:00 | NUR ---
RESIDUAL CHECK NO RESIDUALS ASPIRATED, TUBE FEEDING INCREASED TO 30ML/HR.
[2019-11-09 20:00] VITALS: BP 150/83
[2019-11-10] VITALS: BP 144/67
[2019-11-10] MEDS: LACTATED RINGERS 1000ML 1,000 ML IV SCH ×2 (03:38→21:29)
[2019-11-10 04:00] VITALS: BP 169/86
[2019-11-10 08:17] VITALS: BP 149/77
[2019-11-10] MEDS: ZOSYN 3.375GM+NS 50ML 50 ML IV SCH ×2 (08:33→21:21)
[2019-11-10] MEDS: PANTOPRAZOLE 40 MG/VIAL IVP SCH ×2 (08:33→21:21)
[2019-11-10] MEDS: ENOXAPARIN SODIUM 40 MG/0.4 ML SYRINGE SQ SCH (08:33)
[2019-11-10] MEDS: VANCOMYCIN 1.25 GM in SODIUM CHLORIDE 0.9% 250 ML IV SCH ×2 (08:34→19:44)
[2019-11-10] MEDS: LEVOFLOXACIN 750 MG/D5W 150 ML 150 ML IV SCH (08:34)
[2019-11-10] MEDS: FAMOTIDINE/PF 20 MG/2 ML VIAL IV SCH (09:00)
[2019-11-10 11:39] VITALS: BP 117/79
[2019-11-10 15:52] VITALS: BP 132/71
--- NOTE | 2019-11-10 16:51 | NUR ---
SPOKE TO BROTHER KASI ABREU TAMMY PLANS EARLIER, HE STATES THAT PATIENT HAS HAD [facility] IN THE PAST, WOULD LIKE THAT COMPANY AGAIN. MARÍA FOR [facility]. PKT PREPARED AND FAXED. DORINDA FROM [facility] CONTACTED, STATES HE WILL WORK TO GET THE TUBE FEEDING ORDER COMPLETED/FILLED W A DME THEY WORK WITH CALL TO PROVIDER DONAVAN LAWLER TO COME TO HOSPITAL TO LEARN ABOUT TUBE FEEDING . ADVISED HOUSE & SECURITY OF VISIT IN AM, ADVISED DONAVAN TO COME BEFORE 10 AM EXPECTING DICHARGE TOMORROW VIA EMS, HOME [facility] TO START THURSDAY CM IN AM TO FOLLOW UP FOR ANY UNANSWERED QUESTIONS Addendum: 11/10/19 at 1701 by CARMINA STERN RN CM Amended: Links added.
[2019-11-10 19:51] VITALS: BP 151/82
[2019-11-11 00:01] VITALS: BP 138/66
[2019-11-11 03:57] VITALS: BP 135/66
[2019-11-11 08:00] VITALS: BP 161/84
[2019-11-11] MEDS: VANCOMYCIN 1.25 GM in SODIUM CHLORIDE 0.9% 250 ML IV SCH ×2 (09:57→23:07)
[2019-11-11] MEDS: PANTOPRAZOLE 40 MG/VIAL IVP SCH ×2 (10:41→23:07)
[2019-11-11] MEDS: FAMOTIDINE/PF 20 MG/2 ML VIAL IV SCH (10:41)
[2019-11-11] MEDS: ZOSYN 3.375GM+NS 50ML 50 ML IV SCH ×2 (10:41→23:07)
[2019-11-11] MEDS: LEVOFLOXACIN 750 MG/D5W 150 ML 150 ML IV SCH (10:41)
[2019-11-11] MEDS: ENOXAPARIN SODIUM 40 MG/0.4 ML SYRINGE SQ SCH (10:42)
[2019-11-11] MEDS: LACTATED RINGERS 1000ML 1,000 ML IV SCH (10:42)
[2019-11-11 11:18] VITALS: BP 162/93
--- NOTE | 2019-11-11 12:52 | NUR ---
cmnote call made to [facility] [phone] spoke to MaryA nn ramirez at [facility], and states pt is accepted and they will work on getting the pt's feedings in place, will only need enteral feeds Jevity for the weekend if dc'd today. call made to clearing distribution clerk [facility] adrián and states can provide enough for 3 days, and will call back when ready. nurse updated to call report to [facility] when discharged.
--- NOTE | 2019-11-11 14:33 | NUR ---
RD UPDATE - CONFIRMED FORMULA CORE WINDER MACHINE OPERATOR Notified by Case Management of Pt needing 3 days formula upon discharge. 15 cans, Jevity 1.5 Formula was picked up from kitchen and provided to Patient Care team.
[2019-11-11 16:00] VITALS: BP 152/75
--- NOTE | 2019-11-11 16:12 | NUR ---
DYSPHAGIA EVAL COMPLETE. DYSPHAGIA. RECOMMEND LONG-TERM ALTERNATE MEANS OF NUTRITION/HYDRATION WITH PLEASURE FEEDS OF PUREED TEXTURES. DYSPHAGIA THERAPY 3-5X WEEK TO INCREASE ORAL MOTOR STRENGTH AND PHARYNGEAL SWALLOW: LTG#1: Pt WILL TOLERATE LEAST RESTRICTIVE DIET TO MEET NUTRITION/HYDRATION WITH NO S/S OF ASPIRATION. LTG#2: SKILLED EDUCATION Pt/FAMILY/STAFF STG#1: Pt WILL PARTICIPATE IN LARYNGEAL ELEVATION/EXCURSION EXERCISES WITH 80% ACCURACY. STG#2: Pt WILL PARTICIPATE IN TONGUE BASE RETRACTION EXERCISES WITH 80% ACCURACY. STG#3: Pt WILL PARTICIPATE IN ORAL MOTOR EXERCISES WITH 80% ACCURACY. STG#4: Pt WILL PARTICIPATE IN PLEASURE FEEDS OF PUREED CONSISTENCY WITH NO S/S OF ASPIRATION. STG#5: PT WILL BE ABLE TO PARTICIPATE IN MBSS AFTER 2-4 WEEKS OF THERAPEUTIC INTERVENTION. STG#6: SKILLED EDUCATION Pt/FAMILY/STAFF. Addendum: 11/11/19 at 1617 by [address] Amended: Links added.
[2019-11-11] MEDS ORDERED: HALOPERIDOL LACTATE 5 MG/ML VIAL IM PRN (16:45)
[2019-11-11 20:00] VITALS: BP 173/88
[2019-11-12] VITALS: BP 166/88
[2019-11-12 04:00] VITALS: BP 178/96
[2019-11-12 05:11] LABS: HEMATOCRIT 32.6 % (36-48); MEAN CORPUSCULAR HEMOGLOBIN 28.8 pg (27.0-33.0); MEAN CORPUSCULAR HGB CONC 33.1 g/dL (32.0-36.0); MEAN CORPUSCULAR VOLUME 86.9 fL (79-99); RED BLOOD CELL COUNT(AUTO) 3.75 MIL/uL (4.00-5.50); RED CELL DISTRIBUTION WIDTH 13.7 % (11.0-15.5); WHITE BLOOD COUNT (AUTO) 10.7 K/uL (4.8-10.8)
[2019-11-12 05:27] LABS: ALBUMIN 2.5 g/dL (3.5-5.0); BILIRUBIN,TOTAL 1.2 mg/dL (0.2-1.0); CREATININE 0.6 mg/dL (0.5-1.5); MAGNESIUM 1.8 mg/dL (1.80-2.40); PHOSPHORUS 3.7 mg/dL (2.5-4.9); POTASSIUM 3.4 mmol/L (3.5-5.1); TOTAL PROTEIN, SERUM 6.6 g/dL (6.0-8.3)
[2019-11-12 08:00] VITALS: BP 155/85
[2019-11-12] MEDS: ZOSYN 3.375GM+NS 50ML 50 ML IV SCH ×2 (09:12→20:44)
[2019-11-12] MEDS: FAMOTIDINE/PF 20 MG/2 ML VIAL IV SCH (09:12)
[2019-11-12] MEDS: VANCOMYCIN 1.25 GM in SODIUM CHLORIDE 0.9% 250 ML IV SCH ×2 (09:12→20:44)
[2019-11-12] MEDS: ENOXAPARIN SODIUM 40 MG/0.4 ML SYRINGE SQ SCH (09:13)
[2019-11-12] MEDS: PANTOPRAZOLE 40 MG/VIAL IVP SCH ×2 (09:13→20:44)
[2019-11-12 12:10] VITALS: BP 170/84
[2019-11-12] MEDS: LACTATED RINGERS 1000ML 1,000 ML IV SCH ×2 (13:25→22:12)
--- NOTE | 2019-11-12 15:22 | NUR ---
cm note spoke to Dr Gavin, and states ok with plan to home, but, pt may end up needing to go to snf, but for will keep pt over weekend to observe her gi status, pt. with residuals and pending to tolerate bolus feedings. primary nurse updated.
[2019-11-12 16:00] VITALS: BP 189/99
[2019-11-12] MEDS ORDERED: ALBUTEROL INHALER 90MCG/INH IH PRN (18:30)
[2019-11-12] MEDS ORDERED: MAGNESIUM 2GM PREMIX 50ML 50 ML IV SCH (18:30)
[2019-11-12 20:00] VITALS: BP 114/59
[2019-11-12] MEDS: BACLOFEN 10 MG TABLET PO SCH (20:43)
[2019-11-12] MEDS: MONTELUKAST SODIUM 10 MG TAB PO SCH (20:44)
[2019-11-13] VITALS (7 sets, daily range): BP systolic 114–171; BP diastolic 59–92
[2019-11-13] MEDS: POTASSIUM CHLORIDE 10% ELIXIR 20 MEQ/15 ML UDCUP PO PRN ×2 (00:33→02:54)
[2019-11-13] MEDS: ACETAMINOPHEN ELIXIR 650 MG/20.3 ML UDCUP NG PRN ×2 (04:26→20:41)
--- NOTE | 2019-11-13 05:07 | NUR ---
patient awake and alert times one. gave ice chips to moist her lips at 20:00 and at 02:00 am. patient was bathed. i gave a can of jevity feeding bolus at 22:00 with 100 ml of water before and after the feeding. I also gave another can of jevity at 05:00 am with 100 ml of water before and after feeding. gave patient some acetaminophen through the peg tube for headache. replaced patient's potassium and magnesium. waiting on lab results. no further issues.
[2019-11-13 05:21] LABS: HEMATOCRIT 32.9 % (36-48); MEAN CORPUSCULAR HEMOGLOBIN 29.4 pg (27.0-33.0); MEAN CORPUSCULAR HGB CONC 33.4 g/dL (32.0-36.0); RED BLOOD CELL COUNT(AUTO) 3.74 MIL/uL (4.00-5.50); RED CELL DISTRIBUTION WIDTH 14.3 % (11.0-15.5); WHITE BLOOD COUNT (AUTO) 9.5 K/uL (4.8-10.8)
[2019-11-13 05:33] LABS: CREATININE 0.8 mg/dL (0.5-1.5); MAGNESIUM 2.3 mg/dL (1.80-2.40); PHOSPHORUS 3.6 mg/dL (2.5-4.9); POTASSIUM 3.8 mmol/L (3.5-5.1)
[2019-11-13] MEDS ORDERED: VANCOMYCIN IV SCH (07:30)
[2019-11-13] MEDS ORDERED: SODIUM CHLORIDE 0.9% IV SCH (07:30)
[2019-11-13] MEDS ORDERED: ENALAPRIL MALEATE 5 MG TAB ONE (09:06)
[2019-11-13] MEDS: FAMOTIDINE/PF 20 MG/2 ML VIAL IV SCH (09:23)
[2019-11-13] MEDS: PANTOPRAZOLE 40 MG/VIAL IVP SCH ×2 (09:24→20:41)
[2019-11-13] MEDS: ENOXAPARIN SODIUM 40 MG/0.4 ML SYRINGE SQ SCH (09:24)
[2019-11-13] MEDS: ENALAPRIL MALEATE 10 MG TABLET PO SCH (09:24)
[2019-11-13] MEDS: ZOSYN 3.375GM+NS 50ML 50 ML IV SCH ×2 (09:24→20:40)
[2019-11-13] MEDS: FLUOXETINE HCL 20 MG CAPSULE PO SCH (09:24)
[2019-11-13] MEDS: ATORVASTATIN CALCIUM 10 MG TABLET PO SCH (09:24)
[2019-11-13] MEDS: AMLODIPINE BESYLATE 5 MG TAB PO SCH (09:24)
--- NOTE | 2019-11-13 11:48 | NUR ---
cm note spoke to nurse states bolus feeds started yesterday, and vidya well so far, informed of need to instruct cg Michael Guadarrama, states next bolus feeding is at 415pm. call made to michael guadarrama cg who will be assisting in care at [phone]. to arrange for her to come and learn bolus feedings at that time. left message d/t no answer after 2 attempts.
[2019-11-13] MEDS: BACLOFEN 10 MG TABLET PO SCH ×2 (12:00→20:41)
[2019-11-13] MEDS: LACTATED RINGERS 1000ML 1,000 ML IV SCH ×2 (16:50→20:40)
[2019-11-13] MEDS: MONTELUKAST SODIUM 10 MG TAB PO SCH (20:41)
[2019-11-13] MEDS ORDERED: VANCOMYCIN 1.25 GM in SODIUM CHLORIDE 0.9% 250 ML IV SCH (22:00)
--- NOTE | 2019-11-14 01:52 | NUR ---
received report from am nurse, assumed care, head to toe assessment done, timed medication given see emar, pain medication given pre and post pain assessment done, 24 cc done, safety maintained, oral care done, peg care done.
[2019-11-14 06:23] VITALS: BP 178/96
[2019-11-14 07:30] VITALS: BP 169/98
[2019-11-14] MEDS: PANTOPRAZOLE 40 MG/VIAL IVP SCH (09:00)
[2019-11-14] MEDS: ATORVASTATIN CALCIUM 10 MG TABLET PO SCH (09:00)
[2019-11-14] MEDS: ENOXAPARIN SODIUM 40 MG/0.4 ML SYRINGE SQ SCH (09:00)
[2019-11-14] MEDS: FAMOTIDINE/PF 20 MG/2 ML VIAL IV SCH (09:00)
[2019-11-14] MEDS: AMLODIPINE BESYLATE 5 MG TAB PO SCH (09:00)
[2019-11-14] MEDS: ENALAPRIL MALEATE 10 MG TABLET PO SCH (09:00)
[2019-11-14] MEDS: FLUOXETINE HCL 20 MG CAPSULE PO SCH (09:00)
[2019-11-14 11:00] VITALS: BP 179/95
[2019-11-14] MEDS ORDERED: ENALAPRIL MALEATE 5 MG TAB ONE (11:35)
[2019-11-14] MEDS: BACLOFEN 10 MG TABLET PO SCH (12:34)
--- NOTE | 2019-11-14 12:38 | NUR ---
GOAL: HOME TODAY WITH HOME HEALTH CALL FROM PROVIDER DONAVAN, WILL COME IN TO LEARN TUBE FEEDINGS. TEXT TO MD ABREU HOME W PROVIDER? ORDERS? CALL PENDING TO [facility]. NEEDS JEVITY 2-3 DAYS AT BEDSIDE TO TAKE HOME WITH HER. Addendum: 11/14/19 at 1241 by CARMINA STERN RN CM Amended: Links added.
--- NOTE | 2019-11-14 15:20 | NUR ---
SWALLOW TREATMENT COMPLETED. S: Pt COOPERATIVE WITH ALL ACTIVITIES. Pt RAISED TO 90 DEGREES IN BED. ORAL CARE COMPLETED BY MAGNETIC PROSPECTING SUPERVISOR. O: Pt CURRENTLY TARGETING SWALLOWING GOALS. RESULTS WERE FOLLOWS: STG#1: Pt WILL PARTICIPATE IN LARYNGEAL ELEVATION/EXCURSION EXERCISES WITH 80% ACCURACY: 30% ACCURACY GIVEN MAX CUES STG#2: Pt WILL PARTICIPATE IN TONGUE BASE RETRACTION EXERCISES WITH 80% ACCURACY: NOT TARGETED STG#3: Pt WILL PARTICIPATE IN ORAL MOTOR EXERCISES WITH 80% ACCURACY: 40% ACCURACY (AFFECTED BY CEREBRAL PALSY) STG#4: Pt WILL PARTICIPATE IN PLEASURE FEEDS OF PUREED CONSISTENCY WITH NO S/S OF ASPIRATION: Pt COMPLETED A TOTAL OF 3 TSP TRIALS OF PUREED TEXTURE WITH DELAYED PHARYNGEAL RESPONSE TRIGGER AND DECREASED LARYNGEAL ELEVATION PALPATED DURING MANUAL PALPATION. Pt WITH +S/S OF ASPIRATION OF WET VOCAL QUALITY. STG#6: SKILLED EDUCATION Pt/FAMILY/STAFF: MAGNETIC PROSPECTING SUPERVISOR EDUCATED Pt ON RISKS AND CONSEQUENCES OF ASPIRATION. SHE VERBALIZED UNDERSTANDING AND COMPLIANCE. A: Pt WITH DELAYED PHARYNGEAL RESPONSE TRIGGER DURING THE SESSION. NURSE ISAACS REPORTS Pt HAS BEEN REQUESTING P.O. MAGNETIC PROSPECTING SUPERVISOR EDUCATED Pt ON RISKS AND CONSEQUENCES OF ASPIRATION. P: RECOMMEND CONTINUED SKILLED SPEECH THERAPY 3-5XWK FOR 4 WKS. PLEASURE FEEDS OF PUREED DURING THERAPEUTIC INTERVENTION IN PLACE AT THIS TIME. MAGNETIC PROSPECTING SUPERVISOR COORDINATED WITH ARGENIS ISAACS DURING THE SESSION. Pt POSITIONED AT 45 DEGREES IN BED AFTER THE SESSION. Addendum: 11/14/19 at [address]32 [address] Amended: Links added.
[2019-11-14 16:00] VITALS: BP 153/85
--- NOTE | 2019-11-15 10:17 | NUR ---
AFTER CARE- FOLLOW UP ON DISCHARGE PLANS, CALL FROM DONAVAN PROVIDER EARLIER THIS MORNING, STATES WAS NOT GIVEN DISCHARGE INSTRUCTION BY RN AT DISCHARGE- HOW MUCH MILK PER FEED? ADVISED HER 1 CAN THIS MORNING, AND CALL HH CALL TO HOME HEALTH REP [facility] - ADVISED HIM THAT PROVIDER STATES NOT GIVEN EXIT INSTRUCTIONS AT DISCHARGE. PLEASE PIORITIZE THIS DISCHARGE. CALL TO [facility]- WAS ADVISED BY THEM THAT THEY HAVE BEEN ATTEMPTOING TO REACHPORVIDER NO ANSWER- CM ADVISED HH YES [facility] WORKS, PROVIDER WILL CALL BACK. STATES THEY WILL MAKE A HOUSE TRIP EVEN WITHOUT ANSWER TODAY. DISCUSSED TUBE FEEDING - THAT PATIENT WAS SENT HOME WITH EIGHT CANS- NEEDS TO HAVE ORDER MADE TODAY FOR MORE JEVITY 1.5 VERBALIZED UNDERSTANDING ADVISED
== END 2019-11-14 20:00 | disposition home health service (06) | DRG 870 ==
LOC: EDH 13:28 → EDHIP 16:55 → DAHIP 21:23 → 4DH 11-06 15:33
PROVIDERS: ADMIT Internal Medicine; ATTEND Internal Medicine
PROC: 5A1955Z Respiratory Ventilation, Greater than 96 Consecutive Hours (ICD-10-PCS; principal; 2019-10-30)
PROC: 0BH17EZ Insertion of Endotracheal Airway into Trachea, Via Natural or Artificial Opening (ICD-10-PCS; 2019-10-30)
PROC: 02HV33Z Insertion of Infusion Device into Superior Vena Cava, Percutaneous Approach (ICD-10-PCS; 2019-11-03)
PROC: 5A09357 Assistance with Respiratory Ventilation, Less than 24 Consecutive Hours, Continuous Positive Airway Pressure (ICD-10-PCS; 2019-11-05)
PROC: 0DH63UZ Insertion of Feeding Device into Stomach, Percutaneous Approach (ICD-10-PCS; 2019-11-08)
DX: A41.9 Sepsis, unspecified organism (principal); R65.21 Severe sepsis with septic shock; J96.00 Acute respiratory failure, unspecified whether with hypoxia or hypercapnia; J18.9 Pneumonia, unspecified organism; R53.2 Functional quadriplegia; G92 Toxic encephalopathy; I21.4 Non-ST elevation (NSTEMI) myocardial infarction; R57.1 Hypovolemic shock; M62.82 Rhabdomyolysis; N17.9 Acute kidney failure, unspecified; I13.0 Hypertensive heart and chronic kidney disease with heart failure and stage 1 through stage 4 chronic kidney disease, or unspecified chronic kidney disease; I50.30 Unspecified diastolic (congestive) heart failure; K56.7 Ileus, unspecified; G80.9 Cerebral palsy, unspecified; G47.33 Obstructive sleep apnea (adult) (pediatric); D64.9 Anemia, unspecified; D69.6 Thrombocytopenia, unspecified; E11.22 Type 2 diabetes mellitus with diabetic chronic kidney disease; E78.5 Hyperlipidemia, unspecified; F32.9 Major depressive disorder, single episode, unspecified; F41.9 Anxiety disorder, unspecified; J45.909 Unspecified asthma, uncomplicated; N18.9 Chronic kidney disease, unspecified; R13.12 Dysphagia, oropharyngeal phase; G43.909 Migraine, unspecified, not intractable, without status migrainosus; K21.9 Gastro-esophageal reflux disease without esophagitis; E87.8 Other disorders of electrolyte and fluid balance, not elsewhere classified; I25.2 Old myocardial infarction; Z74.01 Bed confinement status; Z82.0 Family history of epilepsy and other diseases of the nervous system; Z82.3 Family history of stroke; Z82.49 Family history of ischemic heart disease and other diseases of the circulatory system; Z82.5 Family history of asthma and other chronic lower respiratory diseases; Z83.3 Family history of diabetes mellitus; Z87.442 Personal history of urinary calculi; Z90.710 Acquired absence of both cervix and uterus; Z93.1 Gastrostomy status; Z20.828 Contact with and (suspected) exposure to other viral communicable diseases
CPT/HCPCS: 31500; 36415; 36600; 43246; 70450; 71045; 74018; 74176; 80048; 80053; 80061; 80202; 81001; 82140; 82270; 82435; 82550; 82565; 82803; 82947; 82948; 83036; 83605; 83615; 83735; 83874; 83880; 84100; 84132; 84145; 84295; 84439; 84443; 84484; 84520; 85018; 85025; 85027; 85378; 85610; 85730; 86900; 86901; 87040; 87088; 87426; 87804; 92526; 92610; 93005; 93306; 93356; 93970; 94002; 94003; 94760; 97039; 99291; A4606; C1751; C1894; C9113; G0378; J1650; J1940; J1956; J2250; J2543; J2704; J3010; J3370; J3475; J3480; J3490; J7030; J7050; J7120; U0003